=== PATIENT | female | born 1955 | race Caucasian/White ===

== ENCOUNTER 2017-04-11 08:23 | Emergency (ER) | payer MEDICARE, SELFPAY ==
[2017-04-11 08:31] VITALS: BP 146/66; PULSE 67; RESP 18; TEMP 36.7; O2SAT 99; BMI 31.1
--- NOTE | 2017-04-11 09:03 | HMH.EDGENADL ---
ED Disposition Clinical Impression: Laceration of toe of left foot, Head contusion, Fall, Penicillin allergy Disposition: Home, Self-Care Condition on Discharge: Good Additional Instructions: 1- res. 2- elevate. 3- keep the wound dry and clean. 4- use orthopedic shoes. 5- follow up with Dr Mcintosh in 2 days and stitche removal in 10 days. 6- head inj instructions. 7- return if needed or change your mind about x rays. 8- finish abx. Prescriptions: Sulfamethoxazole/Trimethoprim [Bactrim DS tablet] 1 each PO BID #14 tablet Referrals: Boogie Mcintosh MD [Primary Care Provider] - - Critical Care Critical Care Time: No Attestation: On 04/11/17, the high probability of a clinically significant, sudden or life threatening deterioration of the following system(s) required my full and direct attention, intervention and personal management. The time I documented below is in addition to time spent performing reported procedures but includes the following listed in this critical care notation. Medical Decision Making Vital Signs: 04/11/17 08:31 Temperature 98.1 F Temperature Source Oral Pulse Rate [Right Brachial] 67 Respiratory Rate 18 Blood Pressure [Right Arm] 146/66 Blood Pressure Mean [Right Arm] 92 Blood Pressure Source [Right Arm] Automatic Cuff Blood Pressure Position [Right Arm] Sitting 02 Sat by Pulse Oximetry 99 Oxygen Delivery Method Room Air - Oscar Inquiry Pt receiving controlled substance: No Oscar was queried for this patient: No Medical Decision Making Narrative: I discussed with the patient the need for CT scan and possibly x-raying her to. She does not believe she needed and she declined. General Adult HPI - General Chief complaint: PAIN Stated complaint: AO 04/10/17 @ 7:00pm Lac to little toe Mode of Arrival: Ambulatory Limitations: No Limitations Description of Symptoms (Recalled from ER Triage Doc. by RN): LEFT 5TH DIGIT LACERATION - History of Present Illness HPI narrative: 61 years old white female who was walking in her bedroom when she hit a bed frame last night. It resulted in a left fifth toe laceration that continued to bleed until this morning when she walked into the ER for stitches. She did fall and hit her head with no loss of consciousness no vomiting since then. She denies neck pain. She declined an x-ray of her toe and a CT scan of her head. Onset (ago): hour(s) Location: lower extremity Radiation: non-radiation Severity: mild Quality: sharp Consistency: intermittent Relieving factors: rest Exacerbating factors: movement (Initially walking on it) Associated symptoms: denies other symptoms (Except bleeding.) Treatments prior to arrival: none - Related Data Previous Rx's Medication Instructions Recorded Sulfamethoxazole/Trimethoprim 1 each PO BID #14 tablet 04/11/17 [Bactrim DS tablet] Allergies Allergy/AdvReac Type Severity Reaction Status Date / Time lisinopril [LISINOPRIL] Allergy Unknown Verified 04/11/17 08:39 Penicillins [PENICILLINS] Allergy Unknown Verified 04/11/17 08:39 [facility] History I have reviewed the patient's past medical history: Yes - *Social History Educational Level: Completed High School Smoking Status: Unknown if ever smoked Alcohol Intake: current Alcohol Intake Frequency:: holidays/special occasions only Last Used Substance: unknown - Psychiatric History Expresses thoughts of harming self/others: None Suicide Plan Description: No Plan ROS Obtained: Yes All systems reviewed & no additional complaints Physical Exam - General General appearance: alert, in no apparent distress - Head Head exam: atraumatic, normocephalic, normal inspection - Eye Eye exam: Present: normal appearance, PERRL, EOMI - ENT ENT exam: Present: normal exam, normal oropharynx, mucous membranes moist, TM's normal bilaterally, normal external ear exam - Neck Neck exam: Present: normal inspection, full ROM, tr
--- NOTE | 2017-04-11 09:06 | ED_ITS ---
ED Disposition Clinical Impression: Laceration of toe of left foot, Head contusion, Fall, Penicillin allergy Disposition: Home, Self-Care Condition on Discharge: Good Additional Instructions: 1- res. 2- elevate. 3- keep the wound dry and clean. 4- use orthopedic shoes. 5- follow up with Dr Mcintosh in 2 days and stitche removal in 10 days. 6- head inj instructions. 7- return if needed or change your mind about x rays. 8- finish abx. Prescriptions: Sulfamethoxazole/Trimethoprim [Bactrim DS tablet] 1 each PO BID #14 tablet Referrals: Boogie Mcintosh MD [Primary Care Provider] - - Critical Care Critical Care Time: No Attestation: On 04/11/17, the high probability of a clinically significant, sudden or life threatening deterioration of the following system(s) required my full and direct attention, intervention and personal management. The time I documented below is in addition to time spent performing reported procedures but includes the following listed in this critical care notation. Medical Decision Making Vital Signs: 04/11/17 08:31 Temperature 98.1 F Temperature Source Oral Pulse Rate [Right Brachial] 67 Respiratory Rate 18 Blood Pressure [Right Arm] 146/66 Blood Pressure Mean [Right Arm] 92 Blood Pressure Source [Right Arm] Automatic Cuff Blood Pressure Position [Right Arm] Sitting 02 Sat by Pulse Oximetry 99 Oxygen Delivery Method Room Air - Oscar Inquiry Pt receiving controlled substance: No Oscar was queried for this patient: No Medical Decision Making Narrative: I discussed with the patient the need for CT scan and possibly x-raying her to. She does not believe she needed and she declined. General Adult HPI - General Chief complaint: PAIN Stated complaint: AO 04/10/17 @ 7:00pm Lac to little toe Mode of Arrival: Ambulatory Limitations: No Limitations Description of Symptoms (Recalled from ER Triage Doc. by RN): LEFT 5TH DIGIT LACERATION - History of Present Illness HPI narrative: 61 years old white female who was walking in her bedroom when she hit a bed frame last night. It resulted in a left fifth toe laceration that continued to bleed until this morning when she walked into the ER for stitches. She did fall and hit her head with no loss of consciousness no vomiting since then. She denies neck pain. She declined an x-ray of her toe and a CT scan of her head. Onset (ago): hour(s) Location: lower extremity Radiation: non-radiation Severity: mild Quality: sharp Consistency: intermittent Relieving factors: rest Exacerbating factors: movement (Initially walking on it) Associated symptoms: denies other symptoms (Except bleeding.) Treatments prior to arrival: none - Related Data Previous Rx's Medication Instructions Recorded Sulfamethoxazole/Trimethoprim 1 each PO BID #14 tablet 04/11/17 [Bactrim DS tablet] Allergies Allergy/AdvReac Type Severity Reaction Status Date / Time lisinopril [LISINOPRIL] Allergy Unknown Verified 04/11/17 08:39 Penicillins [PENICILLINS] Allergy Unknown Verified 04/11/17 08:39 [facility] History I have reviewed the patient's past medical history: Yes - *Social History Educational Level: Completed High School Smoking Status: Unknown if ever smoked Alcohol Intake: current Alcohol Intake Frequency:: h
[2017-04-11 09:21] VITALS: BP 132/78; PULSE 74; RESP 18; O2SAT 96
== END 2017-04-11 09:45 | disposition home or self-care (01) ==
PROVIDERS: Emergency Provider Emergency Medicine; Family Provider Internal Medicine Adolescent Medicine; PCP Internal Medicine Adolescent Medicine
DX: S91.115A Laceration without foreign body of left lesser toe(s) without damage to nail, initial encounter (principal); S00.03XA Contusion of scalp, initial encounter; W01.190A Fall on same level from slipping, tripping and stumbling with subsequent striking against furniture, initial encounter; Y92.013 Bedroom of single-family (private) house as the place of occurrence of the external cause; Z88.0 Allergy status to penicillin
CPT/HCPCS: 12001; 99282

== ENCOUNTER → 2017-04-27 13:38 | Outpatient (CLI) | payer MEDICARE, SELFPAY ==
--- NOTE | 2017-04-27 13:48 | CT_ITS ---
CT head/brain wo con HISTORY: Ataxia, head pain following injury to the right and left temporal area, headache ORDERING PHYSICIAN: Boogie Mcintosh MD PATIENT AGE: 61 years COMPARISON: None TECHNIQUE: Axial images obtained without contrast. Brain and bone windows reviewed. FINDINGS: No midline shift, mass effect, intracranial hemorrhage, hydrocephalus, or extra-axial fluid collection is evident. There is bilateral basal ganglia calcification. A small 4 mm area of decreased density is noted in the right basal ganglia and could be due to an old small acute infarction or dilated perivascular space. There is some decreased attenuation in the periventricular region which may be due to ischemic gliotic change from microvascular disease. The calvarium has an unremarkable appearance. No mastoid effusion. There is mild opacification of the ethmoid sinuses and the central aspect of the frontal sinus as well as opacified superior aspect of the left maxillary sinus.. IMPRESSION: 1. No acute intracranial finding. 2. Chronic ischemic change. 3. Sinusitis.
--- NOTE | 2017-04-27 13:48 | CT_ITS ---
CT cervical spine wo con INDICATION: Neck pain following injury ITS.REASON: ATAXIA,INJURY OF HEAD,FALL ORDERING PHYSICIAN: Boogie Mcintosh MD PATIENT AGE: 61 years COMPARISON: None TECHNIQUE: Axial images are obtained without contrast. Sagittal and coronal reformatted images are reviewed as well. FINDINGS: There is normal alignment. No acute fracture or dislocation C2-C3: Minimal central disc protrusion versus prominent posterior longitudinal ligament. C3-C4: Degenerative disc disease with decrease in the disc space. C4-C5: Degenerative disc disease with endplate osteophytes and broad-based small right paracentral and foraminal disc osteophyte complex with mild right-sided foraminal narrowing. C5-C6: There is fusion of C5-C6. There is mild bony ridging in the right paracentral region posteriorly of the vertebral body with central and right paracentral canal stenosis. C6-C7: Uncovertebral hypertrophy with bilateral foraminal narrowing and borderline canal stenosis. C7-T1: Unremarkable. Incidental note made of near complete opacification of the left maxillary sinus along with moderate mucosal thickening of the ethmoid sinuses and right maxillary sinus. IMPRESSION: 1. Multilevel cervical spondylosis with degenerative disc disease, canal stenosis and foraminal narrowing as described above. Please see above for detailed description at each level. MRI may be of further value to evaluate for the degree of neural impingement. 2. Fusion of C5 and C6. 3. Sinusitis. 4. No acute fracture
== END ==
PROVIDERS: Family Provider Internal Medicine Adolescent Medicine; PCP Internal Medicine Adolescent Medicine; Visit Provider Internal Medicine Adolescent Medicine
DX: R27.0 Ataxia, unspecified (principal); S09.90XD Unspecified injury of head, subsequent encounter; W19.XXXD Unspecified fall, subsequent encounter; Y92.009 Unspecified place in unspecified non-institutional (private) residence as the place of occurrence of the external cause
CPT/HCPCS: 70450; 72125

== ENCOUNTER → 2017-05-02 09:46 | Outpatient (CLI) | payer MEDICARE, SELFPAY ==
--- NOTE | 2017-05-02 09:50 | XR_ITS ---
XR DEXA axial skeleton HISTORY: ITS.REASON: POST MENOPAUSAL,SCREENING ORDERING PHYSICIAN: Boogie Mcintosh MD PATIENT AGE: 61 years COMPARISON: None FINDINGS: The BMD measured at the AP Spine is 0.879 g/cm squared with a T score of -2.5 . This is considered Osteoporotic according to the World Health Organization criteria. Fracture risk is high. Treatment is advised. Mean density of the hips as a T score of -1.5. IMPRESSION: Osteoporosis with high fracture risk. Recommend follow-up exam April 2018 based on these results
--- NOTE | 2017-05-02 09:50 | MM_ITS ---
MM Dig screening mamm BI w/CAD CAD Screening COMPARISON: Digital mammograms 02/17/2015 and additional views right breast 03/17/2015 INDICATION: There is no personal or family history of breast cancer TECHNIQUE: Standard CC and MLO images were obtained. R2 CAD reviewed. FINDINGS: The breasts are closed primarily of fat with scattered fibroglandular densities in each breast. There are stable asymmetric density upper outer quadrant left breast. There also is a stable asymmetric density just deep to the nipple the right breast. There is no suspicious lesion and there are no suspicious microcalcifications. IMPRESSION: Stable exam no suspicious lesion seen recommend yearly follow-up BI-RADS Category: 2 Benign Finding(s) RECOMMENDED FOLLOW-UP: 1YR - 1 YEAR FOLLOW-UP (A letter has been sent to the patient regarding results of the study.)
== END ==
PROVIDERS: Family Provider Internal Medicine Adolescent Medicine; PCP Internal Medicine Adolescent Medicine; Visit Provider Internal Medicine Adolescent Medicine
DX: Z12.31 Encounter for screening mammogram for malignant neoplasm of breast (principal); Z78.0 Asymptomatic menopausal state; Z13.820 Encounter for screening for osteoporosis
CPT/HCPCS: 77067; 77080

== ENCOUNTER → 2017-12-22 09:17 | Outpatient (CLI) | payer MEDICARE, SELFPAY ==
--- NOTE | 2017-12-22 09:48 | CT_ITS ---
CT chest w con HISTORY: Colon cancer follow-up ITS.REASON: COLON CA ORDERING PHYSICIAN: Yaakov Goel MD PATIENT AGE: 62 years COMPARISON: 04/20/2015 TECHNIQUE: Axial images obtained following the administration of 75 mL of Isovue 370 . Sagittal, and coronal reformatted images are also generated and reviewed. All CT scans at the facility use one or more dose reduction, viz: automated exposure control, ma/kV adjustment per patient size (including targeted exams where dose is matched to indication, i.e. head), or iterative reconstruction technique. FINDINGS: No mediastinal or hilar mass or adenopathy. Normal heart size. No evidence of pericardial effusion. No evidence of thoracic aortic aneurysm or dissection or central pulmonary embolus. No pulmonary nodules infiltrates or effusions. No central structure seen lesions. No bony destructive process. No blastic or lytic lesions apparent. IMPRESSION: Negative CT chest with contrast. No evidence of metastatic disease.
--- NOTE | 2017-12-22 09:48 | CT_ITS ---
CT abdomen pelvis w con CLINICAL INDICATION: Follow-up: Cancer ITS.REASON: COLON CA ORDERING PHYSICIAN: Yaakov Goel MD PATIENT AGE: 62 years COMPARISON: 04/20/2015 TECHNIQUE: Axial images obtained with sagittal and coronal reformats. All CT scans at the facility use one or more dose reduction, viz: automated exposure control, ma/kV adjustment per patient size (including targeted exams where dose is matched to indication, i.e. head), or iterative reconstruction technique. PROCEDURE: Oral Contrast: None IV Contrast: None . FINDINGS: The liver, spleen, left adrenal gland, and pancreas have an unremarkable appearance. Mild nodularity of the right adrenal gland once again noted unchanged. Gallbladder wall appears slightly thickened which is nonspecific. No intraperitoneal or retroperitoneal adenopathy. Unremarkable appendix. No pelvic mass or abnormal fluid collection or focal inflammatory change. There is a mild amount of retained colonic feces. No acute bony anomalies. No bony destructive lytic or blastic process evident. IMPRESSION: Stable CT appearance of the abdomen and pelvis with no evidence of metastatic disease
[2017-12-22 10:50] LABS: Alanine Aminotransferase 51 U/L (12-78); Albumin Level 3.6 gm/dL (3.4-5.0); Alkaline Phosphatase 59 U/L (46-116); Anion Gap 13.1 mEq/L (5-15); Aspartate Amino Transferase 39 U/L (15-37); Bilirubin,Total 0.4 mg/dL (0.2-1.0); Blood Urea Nitrogen 16 mg/dL (7-18); Calcium 8.7 mg/dL (8.5-10.1); Carbon Dioxide 29 mmol/L (21.0-32.0); Chloride 103 mmol/L (98-107); Estimated Glomerular Filt Rate 64 ml/min (>60); GFR (African American) 77 ML/MIN (>60); Globulin 3.5 gm/dl (1.3-3.2); Glucose 94 mg/dL (74-106); Potassium 4.1 mmoL/L (3.5-5.1); Sodium 141 mmol/L (136-145); Total Protein,Serum 7.1 gm/dL (6.4-8.2)
[2017-12-23 18:11] LABS: CEA 1.5 ng/mL (0.0-4.7)
== END ==
PROVIDERS: Family Provider Internal Medicine Adolescent Medicine; PCP Internal Medicine Adolescent Medicine; Visit Provider Surgery
DX: C18.9 Malignant neoplasm of colon, unspecified (principal)
CPT/HCPCS: 36415; 71260; 74177; 80053; 82378; Q9967

== ENCOUNTER → 2019-06-12 15:12 | Outpatient (CLI) | payer MEDICARE, SELFPAY ==
--- NOTE | 2019-06-12 15:19 | XR_ITS ---
PROCEDURE: XR HIP RT 2-3V W/PELVIS CLINICAL INDICATION: RIGHT HIP PAIN COMPARISON: SPCERVWO CT cervical spine wo con from 04/27/2017 FINDINGS: No obvious fracture or dislocation. No lytic changes. There is minimal osteoarthritic change of the hips. There is a defect in the right iliac crest laterally which could be a surgical defect. Please correlate with patient's surgical history. This may be due to a bone harvesting site IMPRESSION: Minimal osteoarthritic change of the hips Possible bone harvesting site right ilium laterally Otherwise negative Dictated by: Jonas Soliman MD 06/12/2019 15:38 Electronically signed by Jonas Soliman MD in [place] 06/12/2019 15:38
== END ==
PROVIDERS: PCP Nurse Practitioner; Visit Provider Physical Medicine & Rehabilitation
DX: M25.551 Pain in right hip (principal)
CPT/HCPCS: 73502

== ENCOUNTER → 2019-07-23 09:50 | Outpatient (CLI) | payer MEDICARE, SELFPAY ==
--- NOTE | 2019-07-23 09:54 | XR_ITS ---
PROCEDURE: XR DEXA AXIAL SKELETON CLINICAL HISTORY: POSTMENOPAUSAL COMPARISON: No exams were available for comparison FINDINGS: Left femoral neck density is 0.541 grams/centimeters sq with T-score -2.8, osteoporosis Right femoral neck density is 0.536 grams/centimeters sq with T-score -2.8, osteoporosis L1-L4 density is 0.793 grams/centimeters squared with a T-score of -2.3 consistent with osteopenia IMPRESSION: Osteoporosis with increased fracture risk. Treatment advised. Suggest follow-up exam in 1 year Dictated by: Jonas Soliman MD 07/23/2019 14:09 Electronically signed by Jonas Soliman MD in [place] 07/23/2019 14:09
== END ==
PROVIDERS: PCP Nurse Practitioner; Visit Provider Family Medicine
DX: M81.0 Age-related osteoporosis without current pathological fracture (principal)
CPT/HCPCS: 77080

== ENCOUNTER → 2019-12-02 10:35 | Outpatient (CLI) | payer MEDICARE, SELFPAY ==
[2019-12-02 17:16] LABS: Coronavirus 19 IgG Antibody Negative (Negative); Coronavirus 19 IgM Antibody Negative (Negative)
== END ==
PROVIDERS: Visit Provider Surgery
DX: Z01.818 Encounter for other preprocedural examination (principal); Z12.11 Encounter for screening for malignant neoplasm of colon
CPT/HCPCS: 36415; 86328

== ENCOUNTER 2019-12-03 06:35 | Day surgery (SDC) | payer MEDICARE, SELFPAY ==
[2019-11-28 13:11] VITALS: BMI 35.9
[2019-12-03] VITALS (7 sets, daily range): BP systolic 95–143; BP diastolic 61–83; PULSE 64–84; RESP 14–18; TEMP 36.2–36.7; O2SAT 92–100
--- NOTE | 2019-12-03 07:10 | HMH.ANESCL ---
[facility] Anesthesia Checklist - Patient Identification Patient Identification: Arm Band, Verbal (Name & ) - Structural Data Admitted From: Home Planned Operative Procedure/s: Colonoscopy Consent for Planned Operative Procedure(s) Verified: Yes Verified Documents: Surgical Consent, History and Physical - NPO Status Verified Time NPO: 00:00 - Chart Verification Results Verified: None - Additional verifications Anesthesia Reactions: No - Airway Assessment C-Spine Mobility Assessed: Yes TMJ Mobility Assessed: Yes Dentition: Dentures-good fit - Neurological Assessment Level of Consciousness: Awake, Alert, Appropriate, Follows Commands Hx Seizures: No Numbness or tingling in extremities: No - Anesthesia Plan Anesthesia Risk discussed: Yes Anesthesia Plan: Verified ASA Class: III Anesthesia Type: MAC [facility] History I have reviewed the patient's past medical history: Yes Medical History: Reports:: Cancer (colon), Hyperlipidemia, Hypertension, Seizures (x1 40 yrs ago) Denies:: Diabetes Mellitus Type 1, Diabetes Mellitus Type 2, Internal Pacemaker, Lung Disease, MRSA *Have you ever received a pneumonia vaccine?: No *Have you received a flu vaccine this season?: No Comment:: Obesity, Chronic back pain, arthritis Anesthesia experience/problems:: No prior complications Laterality Cases: Right: Arthroscopy Shoulder, Bilateral: Arthroscopy Knee Other Surgeries: Yes: Colonoscopy, Tubal Ligation, Other. No: Pacemaker Amputation: No Fractures: No - *Social History Last grade of school completed: 7th or 8th Smoking Status: Never smoker Alcohol Intake: never Alcohol Intake Frequency:: holidays/special occasions only Substance Use Type: denies use *Occupational Status:: disabled *Travel in the last 8 weeks: None Family Hx:: Heart Attack, Cancer
--- NOTE | 2019-12-03 09:05 | HMH.SCOPE ---
- Procedure: Date: 12/03/19 Patient Date of :: 1955 Procedure Performed:: Total colonoscopy with biopsies and polypectomy by snare Indications:: Patient presents for follow-up surveillance colonoscopy. She is a patient who gastroenterology had performed colonoscopy on in March 2015 and she had a cancerous polyp. She did have polypectomy performed but this area was never resected. I had seen her as a consultation for follow-up surveillance colonoscopy and performed colonoscopy in October 2017. No additional polyps were noted. Previous polypectomy site was unable to be definitively evaluated or identified. I had her undergo CT scan of the abdomen pelvis which was unremarkable. CEA level is within normal limits. I had recommended a 2-year follow-up colonoscopy. I had her undergo a PET CT scan for specific radiographic evaluation due to her history of sigmoid cancerous polyp. This reveals no evidence of any metastatic disease. She is asymptomatic. She does state that her sister had colon cancer. She is now under the care of [facility] in [place]. Performing Provider:: Yaakov Goel MD Referring Provider:: Boogie Mcintosh MD Sedation:: Propofol Procedure:: Patient was taken to endoscopy procedure room. She was positioned in a lateral decubitus position. Adequate intravenous sedation was achieved with anesthesia titration of propofol. Variable stiffness Olympus colonoscope was inserted via the anus. With only minor difficulty was advanced to the cecum. Ileocecal valve and appendiceal orifice were clearly identified. Colonoscope was slowly withdrawn through the colon with careful surveillance. In the descending colon there was a minor irregularity possibly consistent with lymphoid nodule removed with biopsy forceps. There was a minor mucosal irregularity in the descending colon biopsied with cold biopsy forceps. Within the rectum there was a focal area of pigmentation which was biopsied and labeled rectal biopsy. Please note that in the distal sigmoid: At approximately 20 to 25 cm from the anal verge there was a polyp removed with cold cutting snare and sent as distal sigmoid polyp. Retroflexion within the rectum revealed no evidence of any pathologic internal hemorrhoids. Colonoscope was withdrawn. Findings:: Distal sigmoid polyp Mucosal irregularities Recommendations:: Pending pathology likely repeat colonoscopy 2 or 3 years Complications:: None immediately apparent Estimated blood obtained (mL): 2
== END 2019-12-03 09:37 | disposition home or self-care (01) ==
LOC: OUTP 06:37
PROVIDERS: PCP Nurse Practitioner; Visit Provider Surgery
PROC: 0DJD8ZZ Inspection of Lower Intestinal Tract, Via Natural or Artificial Opening Endoscopic (ICD-10-PCS; CPT 45380; principal; 2019-12-03 07:30)
DX: K63.5 Polyp of colon (principal); K63.9 Disease of intestine, unspecified; Z80.0 Family history of malignant neoplasm of digestive organs; Z12.11 Encounter for screening for malignant neoplasm of colon; Z85.038 Personal history of other malignant neoplasm of large intestine; E78.5 Hyperlipidemia, unspecified; I10 Essential (primary) hypertension; M19.90 Unspecified osteoarthritis, unspecified site; E66.9 Obesity, unspecified; M54.9 Dorsalgia, unspecified; Z68.35 Body mass index [BMI] 35.0-35.9, adult; Z87.39 Personal history of other diseases of the musculoskeletal system and connective tissue
CPT/HCPCS: 45380; 45385; 88305